=== PATIENT | female | born 1990 | race Two or more races ===

== ENCOUNTER 2025-01-16 11:22 | Emergency (ER) | payer MEDICAID, OTHER ==
[~2025-01-16] VITALS: Ht 165.1 cm; Wt 99.3 kg
[2025-01-16 14:30] VITALS: BP 118/68; PULSE 97; RESP 18; TEMP 98.6; O2SAT 97
[2025-01-16] MEDS ORDERED: AUG875T PO (14:38)
[2025-01-16] MEDS ORDERED: LIDO2SOL18 MT (14:38)
[2025-01-16] MEDS ORDERED: BENZ100C97 PO (14:38)
[2025-01-16] MEDS ORDERED: ACET500T58 PO (14:38)
--- NOTE | 2025-01-16 14:38 | ED.PDOC ---
Eye-HPI HPI Comments 34 year old female with no MHx presents with a chief complaint of sore throat x1 week. Associated with a nonproductive cough fatigue body aches Denies chest pain shortness of breath Denies inability to move neck, history of meningitis Denies difficulty swallowing nor persistent salivation Denies fevers chills night sweats Denies persistent cough, runny nose, congestion Denies loss of appetite, unintentional weight loss over the past 3 months Denies voice changes Denies history of asthma or seasonal allergies Chief Complaint: Sore Throat Time Seen by MD: 13:51 Reviewed Notes: Nurses Notes, Medications, Allergies Allergies: Coded Allergies: NO KNOWN ALLERGIES (Unverified , 01/16/25) Home Meds Active Scripts Lidocaine Hcl (Lidocaine Viscous) 2 % Kat, 15 ML MT TID for 2 Days, #200 ML 0 Refills Prov:ALIA JACKSON [employer] 01/16/25 Benzonatate (Benzonatate) 100 Mg Cap, 1 CAP PO TID for 10 Days, #30 CAP 0 Refills Prov:ALIA JACKSON [employer] 01/16/25 Acetaminophen (Acetaminophen) 500 Mg Tab, 500 MG PO Q4HP PRN for 10 Days, #50 TAB 0 Refills Prov:ALIA JACKSON [employer] 01/16/25 Amoxicillin & Pot Clavulanate (AUGMENTIN TABLET) 875 Mg Tb, 875 MG PO BID for 7 Days, #14 TAB 0 Refills Prov:ALIA JACKSON [employer] 01/16/25 Information Source: Patient Mode of Arrival: Ambulatory Family History Family History: Reviewed,noncontributory to illness Social History Smoker: Non-Smoker Alcohol: Denies ETOH Use Drugs: Denies Drug Use All Other Systems: Reviewed and Negative (Per HPI) Physical Exam General Appearance: No Apparent Distress, Normal HEENT: Normal ENT Inspection, Pharynx Normal, TMs Normal Neck: Full Range of Motion, Non-Tender, Normal, Normal Inspection Respiratory: Chest Non-Tender, Lungs Clear, No Accessory Muscle Use, No Respiratory Distress, Normal Breath Sounds Cardiovascular: No Edema, No JVD, No Murmur, No Gallop, Normal Peripheral Pulses, Regular Rate/Rhythm Breast Exam: Deferred Gastrointestinal: No Organomegaly, Non Tender, No Pulsatile Mass, Normal Bowel Sounds, Soft Genitalia: Deferred Pelvic: Deferred Rectal: Deferred Extremities: No calf tenderness, Normal capillary refill, Normal inspection, Normal range of motion, Non-tender, No pedal edema Musculoskeletal : Apperance: Normal Neurologic: Alert, base filler II-XII nml as Tested, No Motor Deficits, Normal Affect, Normal Mood, No Sensory Deficits Cerebellar Function: Normal Reflexes: Normal Skin: Dry, Normal Color, Warm Lymphatic: No Adenopathy Was a procedure done? Was a procedure done?: No EENT DIFF Eye: Other Sore Throat: Streptococcal, Viral Pharyngitis, URI X-Ray, Labs, Meds, VS Vital Signs Date Time Temp Pulse Resp B/P (MAP) Pulse Ox O2 Delivery O2 Flow Rate FiO2 01/16/25 14:30 97 18 97 Room Air 01/16/25 14:30 98.6 97 18 118/68 (85) 97 98.6 01/16/25 12:15 98.6 97 18 118/68 (85) 97 X-Ray, Labs, Meds, VS Comment Empiric tx Patient is stable for discharge at this time. External notes reviewed. Test results and diagnostic imaging interpreted. All diagnostic findings, discharge care, education and instructions provided Follow-up with PCP in 2 to 3 days Patient verbalized understanding and agreed to treatment plan Vital signs stable, afebrile, no acute distress noted Patient ambulatory with strong steady gait Advised to return precautions for any new or worsening symptoms, return to ER immediately for re-evaluation Patient is aware that the purpose of this visit was for an acute medical emergency requiring emergent stabilization. Chronic conditions, including malignancies have not been ruled out. Patient is instructed to follow up with PCP as directed and discharge instructions for continued care and workup. If unable to arrange follow-up, patient is to return to the emergency department for reassessment. Patient (parent or legal guardian if applicable) was given verbal and written discharge instructions and acknowledges understanding. Time of 1ST Reevaluation: 14:00 Reevaluation 1ST: Improved Patient Education/Counseling: Diagnosis, Treatment Family Education/Counseling: Diagnosis, Treatment Departure 1 Departure Time of Disposition: 14:36 Impression: Primary Impression: Pharyngitis Qualified Codes: J02.9 - Acute pharyngitis, unspecified Disposition: HOME / SELF CARE / HOMELESS Condition: Fair e-Prescriptions Lidocaine Hcl (Lidocaine Viscous) 2 % Kat 15 ML MT TID for 2 Days, #200 ML 0 Refills Prov: ALIA JACKSON NP 01/16/25 Benzonatate (Benzonatate) 100 Mg Cap 1 CAP PO TID for 10 Days, #30 CAP 0 Refills Prov: ALIA JACKSON [employer] 01/16/25 Acetaminophen (Acetaminophen) 500 Mg Tab 500 MG PO Q4HP PRN for 10 Days, #50 TAB 0 Refills Prov: ALIA JACKSON [employer] 01/16/25 Amoxicillin & Pot Clavulanate (AUGMENTIN TABLET) 875 Mg Tb 875 MG PO BID for 7 Days, #14 TAB 0 Refills Prov: ALIA JACKSON [employer] 01/16/25 Critical Care Note Critical Care Time?: No Stability Stability form required: No Heart Score Heart Score: Heart Score Response (Comments) Value History N/A 0 EKG N/A 0 Age N/A 0 Risk Factors N/A 0 Troponin N/A 0 Total 0 ALIA JACKSON NP Jan 16, 2025 14:38
== END 2025-01-16 14:49 | disposition home or self-care (01) ==
LOC: ER 11:22
DX: J02.9 Acute pharyngitis, unspecified (principal); R05.9 Cough, unspecified; M79.18 Myalgia, other site